=== PATIENT | female | born 1965 | race American Indian/Alaskan Native ===

== ENCOUNTER 2016-08-28 06:33 | Day surgery (SDC) | payer MEDICAID ==
[2016-08-19 13:22] VITALS: BMI 35.9
[2016-08-28] MEDS ORDERED: Bacitracin Ointment 30 GM TUBE ONE ×2 (07:32→10:47)
[2016-08-28] MEDS ORDERED: Bupivacaine HCl 0.5% PF (10 ml) Inj ONE ×2 (07:32)
[2016-08-28] MEDS ORDERED: Lidocaine 2% Inj (20ml) ONE (07:32)
[2016-08-28] MEDS ORDERED: Clindamycin 600mg/50ml D5W 600 MG/50 ML VIAL IVPB STA (07:39)
[2016-08-28] MEDS ORDERED: Propofol 10 mg/ml Inj (20 ML) ONE ×2 (07:59→10:31)
[2016-08-28] MEDS ORDERED: Midazolam 2 MG/2 ML VIAL ONE (07:59)
[2016-08-28] MEDS ORDERED: Lactated Ringer's 1,000 ML IV ONE ×2 (08:20→11:07)
[2016-08-28] MEDS ORDERED: Dexamethasone 4 mg/1 ml ONE (09:35)
[2016-08-28] MEDS ORDERED: Oxycodone/Acetaminophen 5/325 mg Tab PO PRN ×2 (11:11)
[2016-08-28] MEDS ORDERED: HYDROmorphone 0.5 mg/0.5 ml ISec IVP PRN (11:18)
[2016-08-28] MEDS ORDERED: Lactated Ringer's 1,000 ML IV SCH (11:30)
[2016-08-28 12:16] VITALS: O2SAT 100
[2016-08-28 12:17] VITALS: RESP 13; TEMP 98
--- NOTE | 2016-08-28 12:44 | CP.PCM.PN ---
Objective - Vital Signs/Intake and Output Vital Signs (last 24 hours): Temp Pulse Resp BP Pulse Ox 98 F 93 H 13 141/78 100 08/28/16 12:00 08/28/16 12:00 08/28/16 12:00 08/28/16 12:00 08/28/16 12:00 Intake and Output: 08/28/16 08/28/16 06:59 18:59 Intake Total 200 Balance 200 - Medications Medications: Current Medications Acetaminophen (Tylenol 325mg Tab) 650 mg PO Q6 PRN PRN Reason: Pain, Mild (1-3) Hydromorphone HCl (Dilaudid) 0.5 mg IVP Q10M PRN PRN Reason: Pain, moderate (4-7) Stop: 08/28/16 13:20 Lactated Ringer's (Lactated Ringer's) 1,000 mls @ 150 mls/hr IV .Q6H40M BRITTA Ondansetron HCl (Zofran Inj) 4 mg IVP ONCE PRN PRN Reason: Nausea/Vomiting Stop: 08/28/16 13:20 Oxycodone/Acetaminophen (Percocet 5/325 Mg Tab) 1 tab PO Q6H PRN PRN Reason: Pain, moderate (4-7) Stop: 08/31/16 11:12 Oxycodone/Acetaminophen (Percocet 5/325 Mg Tab) 2 tab PO Q6H PRN PRN Reason: Pain, severe (8-10) Stop: 08/31/16 11:12
--- NOTE | 2016-08-28 12:44 | PCM.SURG1 ---
Surgeon's Initial Post Op Note - Surgeon's Notes Surgeon: Dr. Justin Chief Wellness Officer: Dr. Sher, Dr. Shay Type of Anesthesia: IV Sedation, Local Pre-Operative Diagnosis: Right foot hallux abducto valgus, 2nd digit MTPJ subluxation Operative Findings: See dication. M: Synthes 2.7 FT coritcal screw, 2.0 FT cortical screw x4. I: 20ml 1:1 0.5% marcaine plain, 1% lidocaine plain; 10ml 0.5% marcaine plain; 1ml dexamethasone Post-Operative Diagnosis: same Operation Performed: Right foot 1st metatarsal osteotomy, hallux proximal phalanx osteotomy, 2nd metatarsal osteotomy with internal fixation Specimen/Specimens Removed: bone right foot Estimated Blood Loss: EBL {In ML}: 5 Blood Products Given: N/A Drains Used: No Drains Post-Op Condition: Good Date of Surgery/Procedure: 08/28/16 Time of Surgery/Procedure: 09:00
[2016-08-28 13:24] VITALS: BP 129/68; PULSE 79
--- NOTE | 2016-08-28 14:51 | RAD ---
PROCEDURE: Right Foot Radiographs. HISTORY: s/p right foot surgery COMPARISON: 08/19/2016 FINDINGS: BONES: Status post bunionectomy. Osteotomy 1st metatarsal distal diaphysis with surgical screw periods to surgical screws traverse 1st proximal phalanx. Osteotomy 2nd metatarsal, distally, with 2 surgical screws. Plantar calcaneal spur noted. JOINTS: Normal. SOFT TISSUES: Small amount of gas seen in the plantar aspect of the right foot. There is small amount of gas seen in the interspace between the 2nd and 3rd proximal phalanges. Consistent with immediate postoperative changes. OTHER FINDINGS: None. IMPRESSION: Osteotomy 1st and 2nd metatarsals. Bunionectomy. Surgical screws in right 1st proximal phalanx.
--- NOTE | 2016-09-02 15:39 | PCM.OP ---
Operative Report - Operative Report Date of Surgery/Procedure: 08/28/16 Time of Surgery/Procedure: 08:00 Surgeon: Dr. Justin Rental Car Ferry Driver: Dr. Sher Anesthesia/Sedation: IV sedation, local injection Pre-Operative Diagnosis: 1. Right foot hallux abducto valgus deformity. 2. Right foot elongated and plantarflexed 2nd metatarsal Post-Operative Diagnosis: same as above Indication for Surgery: This patiet is a 51 y/o female with the aformentioned diagnosis. She is being treated by Dr. Justin in his office on an out patient basis where she has exhausted all conservative treatment options. All conservative and surgical treatment options as well as all alternatives, benefits, complications and risks to surgical procedure were explained to the patient and his family at length to their understanding. The patient desires surgical intervention at this time. All questions were addressed and answered. No guarantees were given nor implied. The consent was signed and the NPO status was confirmed before bringing the patient into the operating room. Operative Findings: The patient was brought into the operating room and placed on the operating room table in the supine position. A pneumatic ankle tourniquet was applied to the right ankle around the supramalleolar area. After induction of IV sedation a local injection consisting of 30ml of a 1:1 mixture of 1% lidocaine plain and 0.5% marcaine plain were adminsitered to the right foot in a local block fashion. After local anesthesia was achieved, the foot was prepped and draped in the usual sterile manner and the procedure began. Procedure/Operation Description: Procedure 1: Right foot 1st metatarsal osteotomy with internal fixation. Attention was directed to the dorsal medial aspect of the right foot 1st MTPJ where a linear longitudinal incision was made utilizing a 15-blade. The incision was deepened through the superficial and subuctaneous tissues using sharp and blunt dissection. Care was taken to retract all vital nuerovascular and tendinous structures throughout the duration of the procedure. Dissection was then carried to the lateral aspect of the 1st MTPJ into the 1st interspace with dissecting scissors. A lateral release was performed by transecting the lateral metatarsal sesamoidal ligament , the adductor hallucis tendon at its insertion into the fibular sesamoid and the lateral 1st MTPJ capsule. Next, attention was directed back to the dorsal medial 1st MTPJ where an inverted L-type capsulotomy was performed. A 15-blade and freer elevator were then utilized to free the periosteal and capsular structures from the head of the first metatarsal. It was noted at this time that there was a prominent hypertrophic portion of bone at the dorsal medial 1st met head. With the head of the 1st metatarsal now adequately exposed, a sagittal saw was used to resect the prominent medial eminence. Attention was directed to the medial 1st met head where a Chevron type osteotomy was performed with the sagittal saw. The osteotomy was performed so that the apex pointed distally, and dorsal arm was slightly longer than plantar arm to accomodate for internal fixation. Once the osteotomy was completed, the capital fragment was shifted laterally into a corrected positon and impacted on the shaft of the 1st metatarsal. Next, a temporary K-wire was utilized to hold the osteotomy in place. Then, one 2.7mm Synthes fully threaded cortical screw was inserted across the osteotomy site using standard AO technique. The temporary K-wire was then removed and it was noted that there was excellent compression and fixation across the osteotomy site. The sagittal saw was then utilized to removed the prominent medial shelf of bone and any other remaining prominent portions of bone from the 1st met head. The surgical area was then flused with copious amounts of sterile normal saline. Procedure 2: Right foot hallux proximal phalanx osteotmy with internal fixation. Utilizing the same surgical incision, attention was directed to the proximal phalanx of the hallux. Utilizing a 15-blade and freer elevator, all periosteal and capsular tissue was reflexted from the proximal phalanx. With the proximal phalanx now adequately exposed, an oblique Bernardino-type osteotomy was made utilizing a sagittal saw. It was ensured to not break the lateral cortex when performing the osteotomy. Once the osteotomy was completed, a wedge of bone was removed from the site and the osteotomy was reduced and temporarily fixated with a K- wire. It was noted at this time that the deformity had been adequately reduced. Next, two Synthes 2.0mm fully threaded cortical screws were inserted accross the osteotomy site using standard AO technique. It was noted at this time that there was adequate fixation across the osteotomy site. The surgical area was then flushed with copious amounts of sterile normal saline. Attention was then directed to the medial aspect of the 1st MTPJ where a medial capsulorrhaphy was performed. The capsular and periosteal structures were then reapproximated with 2-0 and 3-0 vicryl suture. The subcutaneous tissues were reapproximated with 4-0 vicryl suture. The skin was reapproximated with 4-0 prolene suture. Procedure 3: Right foot second metatarsal osteotomy with internal fixation. Attention was directed to the dorsal 2nd MTPJ where a linear longitudinal incision was made with a 15-blade. The incision was deepend through the superficial and subcutaneous tissues utilizing sharp and blunt dissection. Care was taken to retract all vital neurovascular and tendinous structures throughout the duration of the procedure. Dissection was then carried to the level of the dorsal 2nd MTPJ, where a 15-blade was used to make a transverse capsulotomy through the dorsal aspect. Next, the 15 blade was utilized to make a linear incision throught the periosteal tissue on the dorsal aspect of the 2nd met head. A freer elevator, McGkathleenry's elevator and 15 -blade were then utilized to free the soft tissues from the head of the 2nd met. With the head of the 2nd met adequately exposed, a sagittal saw was utilized to perform a Jose-type osteotomy in a dorsal distal to platnar proximal direction. Once the osteotomy was completed, the captial fragment was shifted proximally into a corrected position. A K-wire was then inserted accross the osteotomy site in a dorsal to plantar direction to serve as temporary fixation. Next, two Synthes 2.0mm fully threaded cortical screws were inserted from dorsal to plantar across the osteotomy site using standard AO technique. The temporary K-wire was then removed and it was noted that there was excellent fixation across the osteotomy site. The surgical area was then flushed with copious amounts of sterile normal saline. The capsular and periosteal tissues were then reapproximated using 3-0 vicryl suture. The skin was then reapproximated using 4-0 prolene suture. Intraoperative injection consisted of 10ml of 0.5% marcaine plain and 2ml dexamethasone. Postoperative bandages included xerofrom, DSD, kerlix, OLESYA bandage. Estimated Blood Loss: 5 Complications: None Discharge & Condition: Patient was escorted from the OR to the recovery room with vital signs stable and neurovascular status intact. Patient tolerated the procedure and anesthesia well with no complications. Patient will follow up with Dr. Justin in his office on an outpt basis.
== END 2016-08-28 13:00 | disposition home or self-care (01) ==
LOC: C.SDS 06:33
PROVIDERS: ATTEND Podiatrist Foot & Ankle Surgery
DX: M20.11 Hallux valgus (acquired), right foot (principal)
CPT/HCPCS: 28306; 73620; 88304; 88311; C1713; J1100; J2250; J2704; J3010; J7120

== ENCOUNTER 2017-09-15 09:01 | Day surgery (SDC) | payer MEDICAID ==
[2017-09-03 09:01] VITALS: BMI 32.5
[2017-09-15] MEDS ORDERED: Lidocaine 2% MPF (5 ml) Inj ONE ×2 (10:38→12:06)
[2017-09-15] MEDS ORDERED: Clindamycin 600mg/50ml NS 600 MG/50 ML BAG IVPB ONE (10:39)
[2017-09-15] MEDS ORDERED: Midazolam 2 MG/2 ML VIAL ONE (11:31)
[2017-09-15] MEDS ORDERED: Propofol 10 mg/ml Inj (20 ML) ONE ×2 (11:32→11:42)
[2017-09-15] MEDS: Bupivacaine HCl 0.5% PF (30 ml) Inj ONE ×2 (11:42→12:09)
[2017-09-15] MEDS: Lidocaine 2% MPF (5 ml) Inj ONE ×2 (11:42→12:10)
[2017-09-15] MEDS ORDERED: Bupivacaine HCl 0.5% PF (30 ml) Inj ONE (12:44)
[2017-09-15] MEDS ORDERED: Lactated Ringer's 1,000 ML IV ONE (13:11)
[2017-09-15] MEDS ORDERED: Oxycodone/Acetaminophen 5/325 mg Tab PO PRN ×2 (13:12)
--- NOTE | 2017-09-15 13:18 | PCM.SURG1 ---
Surgeon's Initial Post Op Note - Surgeon's Notes Surgeon: Dr. Justin Social Work Faculty Member: Kevin Peterson PGY2, Alyssa Laughlin PGY3, Kevin Heredia PGY2 Type of Anesthesia: IV Sedation, Local (30cc 1:1 mixture 2% lidocaine plain & 0.5% marcaine plain) Anesthesia Administered By: Dr. Dudley Pre-Operative Diagnosis: 1) Painful retained hardware right hallux. 2) Painful retained hardware right 2nd metatarsal. 3) 2nd digit hammertoe. 4) 3rd digit hammertoe. 5) left hallux onychomycosis Operative Findings: See operative report. Materials: 2-0 vicryl, 3-0 vicryl, 4- 0 vicryl, 4-0 nylon, 0.045 k-wire. Injectables: 10cc 0.5% marcaine L, 2mg/mL dexamethasone, 10cc 0.5% marcaine R Post-Operative Diagnosis: Same as above Operation Performed: 1) Right hallux removal of hardware. 2) Right 2nd metatarsal removal of hardware. 3) 2nd digit hammertoe correction. 4) 3rd digit hammertoe correction. 5) left hallux total temporary nail avulsion Specimen/Specimens Removed: Synthes fully threaded cortical screws x4. Right 3rd digit middle phalanx. Left hallucal nail Estimated Blood Loss: EBL {In ML}: 1 Blood Products Given: N/A Drains Used: No Drains Post-Op Condition: Good Date of Surgery/Procedure: 09/15/17 Time of Surgery/Procedure: 13:19
[2017-09-15] MEDS ORDERED: HYDROmorphone 0.5 mg/0.5 ml ISec IVP PRN (13:23)
[2017-09-15] MEDS ORDERED: Lactated Ringer's 1,000 ML IV SCH (13:30)
[2017-09-15] MEDS ORDERED: HYDROmorphone 0.5 mg/0.5 ml ISec ONE (13:31)
[2017-09-15 16:14] VITALS: BP 116/63; PULSE 90; RESP 20; TEMP 97.8; O2SAT 98
--- NOTE | 2017-09-16 12:53 | RAD ---
Date of service: 09/15/2017 PROCEDURE: Right Foot Radiographs. HISTORY: s/p right foot surgery COMPARISON: 08/28/2016 FINDINGS: BONES: The medial 1st metatarsal bunionectomy and osteotomy changes with single screw here is similar-appearing. The to 1st proximal phalangeal screws have been removed. Distal 2nd metatarsal head screws have been removed and an interval elongated pin here (2nd digit) has been placed. An interval osseous partial resection of the 3rd proximal phalanx has occurred. The L-shaped an ulcer projects over this distal 3rd digit A 4 x 1 mm ossific sliver possible postsurgical change of this lateral 2nd proximal phalanx is noted on series 714, image 2 clinical correlation recommended finding not appreciated on the prior study. The laterally positioned lateral sesamoid bone is unchanged. The os peroneum status is similar. The inferior and posterior calcaneal prominent spurring is unchanged. JOINTS: Arthrosis mostly metatarsal-phalangeal joints SOFT TISSUES: Diffuse dorsal and plantar soft tissue swelling with reticulated edema is present. Findings were noted previously - currently soft tissue swelling appears less than it did before. Lucency in the plantar soft tissues at the mid metatarsal level on the prior study has is no longer appreciated on current study. OTHER FINDINGS: None. IMPRESSION: Interval postsurgical changes as above.
--- NOTE | 2017-09-19 21:52 | PCM.OP ---
Operative Report - Operative Report Date of Surgery/Procedure: 09/19/17 Time of Surgery/Procedure: 13:15 Surgeon: Dr. Justin Store Mgr: Kevin Peterson PGY2, Alyssa Laughlin PGY3, Kevin Heredia PGY2 Anesthesia/Sedation: IV Sedation, Local (30cc 1:1 mixture 2% lidocaine plain & 0.5% marcaine plain) Pre-Operative Diagnosis: 1) Painful retained hardware right hallux. 2) Painful retained hardware right 2nd metatarsal. 3) 2nd digit hammertoe. 4) 3rd digit hammertoe. 5) left hallux onychomycosis Post-Operative Diagnosis: 1) Painful retained hardware right hallux. 2) Painful retained hardware right 2nd metatarsal. 3) 2nd digit hammertoe. 4) 3rd digit hammertoe. 5) left hallux onychomycosis Indication for Surgery: Patient is a 52 year old female with the above mentioned diagnoses. Patient has exhausted conservative treatment at this time and now requests surgical intervention. Patient signed the consent after careful explanation of risks, benefits, complications, and alternatives to procedure and wishes to proceed. No guarantees were given nor implied. Operative Findings: See operation description Procedure/Operation Description: Preparation: Patient was brought into the operating room and placed on the operating room table in a supine position. Timeout was performed for identification of the correct patient and procedure. A pneumatic ankle tourniquet was placed in a supramalleolar position to the right lower extremity. After the induction of IV sedation, a total of 30cc 1:1 mixture of 1% lidocaine plain & 0.5% marcaine plain was administered in an ankle block fashion to the right lower extremity and hallux block to the left hallux. Once local anesthesia was achieved, both feet were prepped and draped in normal sterile manner and the procedure began. 1) Removal of painful retained hardware right hallux. Attention was directed to the directed to the dorsomedial aspect of the right hallux where it was noted to have a well-healed linear cicatrix. Utilizing a #15 blade, a 3cm incision was made from the 1st metatarsal head distal to the base of the hallucal proximal phalanx. The incision was carried through subcutaneous tissue down to the level of bone, taking care to retract all vital neurovascular structures. All bleeders were ligated and cauterized as necessary. Once down to bone, 2 fully threaded cortical screws were noted to be present along the base of the proximal phalanx. The screws were removed using a Synthes screw ice delivery driver without incident. The wound was flushed with copious amounts of sterile saline. Deep closure was obtained using 4-0 vicryl, and skin was reapproximated using 3-0 nylon in a simple interrupted suture technique. 2) Removal of painful retained hardware right 2nd metatarsal; 2nd digit hammertoe correction. Attention was directed to the dorsal aspect of the 2nd metatarsal where it was noted to have a well- healed linear cicatrix along the distal 2nd metatarsal and 2nd metatarsophalangeal joint. Utilizing a #15 blade, a linear incision was made; the incision was carried down through subcutaneous tissues to the level of bone through a mixture of sharp and blunt dissection. Once down to bone, 2 fully threaded cortical screws were visualized and noted to be intact in the 2nd metatarsal head. The screws were removed using a Synthes screw ice delivery driver without incident. Once hardware was removed, the 2nd digit was noted to be in a dorsiflexed position. utilizing a #15 blade, a z-lengthening was perfomed on the extensor tendon to relief the contracture; once performed the 2nd digit was noted to have excellent anatomic alignment. The wound was then flushed with copious amounts of sterile saline. Deep closure was performed using 4-0 vicryl, and skin was reapproximated using 4-0 nylon. 3) 3rd digit hammertoe correction. Directing attention to the 3rd digit, utilizing a #15 blade, an elliptical incision was made at the level of the proximal interphalangeal joint. The incision was deepened through subcutaneous tissue with care being taken to identify and retract all vital neurovascular structures. All bleeders were ligated and cauterized as necessary. At this time, a transverse tenotomy and capsulotomy was performed to the PIPJ. The head of the proximal phalanx was then freed of its capsular and ligamentous attachments. Next utilizing an sagittal saw, the head of the proximal phalanx was resected and passed from the operative site. Using a K-wire ice delivery driver, 0.045 K-wire was inserted through the 3rd digit into the 3rd metatarsal. Correction of the deformity was assessed at this time and noted to be excellent. The skin was reapproximated and sutured with #4-0 nylon. 4) Left hallux total temporary nail avulsion. Attention was directed to the left hallux. Using a freer elevator, the nail plate was freed from the nail bed and medial/lateral/proximal nail folds. Once freed, using a hemostat, the nail was freed and passed off the field to be sent to pathology. The wound was then flushed with copious amounts of sterile saline and dressed with bacitracin and a dry sterile dressing. Post operative dressings: bacitracin, adaptic, sterile gauze, kerlix. Estimated Blood Loss: 1 mL Complications: None Discharge & Condition: The patient tolerated the procedure and anesthesia well and was escorted to the recovery room with vital signs stable and neurovascular status intact to bilateral lower extremities. The patient will follow up with Dr. Justin in office.
== END 2017-09-15 16:10 | disposition home or self-care (01) ==
LOC: C.SDS 09:01
PROVIDERS: ATTEND Podiatrist Foot & Ankle Surgery
DX: T84.84XA Pain due to internal orthopedic prosthetic devices, implants and grafts, initial encounter (principal); M20.41 Other hammer toe(s) (acquired), right foot; B35.1 Tinea unguium
CPT/HCPCS: 20680; 28285; 73630; 82948; 88304; 88311; 88312; C1713; J1100; J1170; J2250; J2704; J7120